=== PATIENT | male | born 1965 | race Caucasian/White ===

== ENCOUNTER 2018-01-14 07:42 | Emergency (ER) | payer OTHER ==
[~2018-01-14] VITALS: Ht 190.5 cm; Wt 117.9 kg
[~2018-01-14 07:42] MED LIST: ALBUTEROL0.09 MG/A1 INH; ATORVASTATIN CA10 M1 PO; BIAXIN FILMTAB500 MG PO; BROMFED DM COU118 ML PO; DILAUDID2 MG PO; FLEXERIL10 MG PO; GLYBURIDE2.5 MG PO; GLYBURIDE5 M1 PO; GLYBURIDE5 MG PO; LOSARTAN-HCTZ1 EAC2 PO; METFORMIN HCL500 M3 PO; NAPROSYN 500 M500 MG PO; NAPROXEN500 MG PO; PERCOCET 325 MG1 TA2 PO; PERCOCET 7.5-31 EACH PO; PROAIR HFA0.09 MG/Ac INH; ROBITUSSIN W/CO10 ML PO; TAMSULOSIN HYD0.4 MG PO
[2018-01-14 07:46] VITALS: BP 154/81
[2018-01-14] MEDS ORDERED: PROAIR HFA8.5 GM INH (07:57)
[2018-01-14] MEDS ORDERED: FLONASE ALLERG9.9 ML NAS (07:57)
[2018-01-14] MEDS ORDERED: ZITHROMAX250 M2 PO (07:57)
[2018-01-14] MEDS ORDERED: TESSALON PERLE100 M1 PO (07:57)
--- NOTE | 2018-01-14 07:58 | ED INFLUENZA/URI COMPLAINT ---
History of Present Illness General Chief Complaint: Upper Respiratory Sx/Fever Stated Complaint: URI Source: patient, old records Exam Limitations: no limitations Vital Signs & Intake/Output Vital Signs & Intake/Output Vital Signs Date Time Temp Pulse Resp B/P B/P Pulse O2 O2 Flow FiO2 Mean Ox Delivery Rate 01/14 0801 Room Air Room Air 01/14 0746 98.2 79 18 154/81 96 Room Air Allergies Coded Allergies: NO KNOWN ALLERGIES (NONE) (05/18/15) Reconcile Medications Albuterol Sulfate (Proair Hfa) 90 MCG HFA.AER.AD 2 PUF INH Q4-6 PRN PRN BRONCHITIS Azithromycin (Zithromax) 250 MG TABLET 1 DP PO AD SINUSITIS 2 the first day followed by 1 for days 2-5 Benzonatate (Tessalon Perle) 100 MG CAPSULE 1 CAP PO TID PRN COUGH Fluticasone Propionate (Flonase Allergy Relief) 50 MCG/ACTUATION SPRAY.SUSP 2 SPRAY CIRA DAILY SINUSITIS Triage Note: PT TO ER C/C 3 WEEK HX OF POST-NASAL DRIP, WORSE AT NIGHT INDUCING COUGH. PT HAS NOT TRIED ANY OTC MEDICATIONS FOR S/S. DENIES FEVERS OR CHILLS. Triage Nurses Notes Reviewed? yes HPI: Patient presents with a three-week history of postnasal drip causing a productive cough. Patient is a smoker. Patient states the symptoms are worse at night. Patient has been trying [id number] medication without relief. He states that now he is blowing his nose and green stuff is coming out. Patient has not seen his primary care physician for this. There is no headache. There is no blurry vision. There is no nausea or vomiting. Past History Travel History Traveled to [place] past 21 day No Medical History Any Pertinent Medical History? 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 No Review of Systems Review of Systems Constitutional: Reports: no symptoms. EENTM: Reports: see HPI, nasal congestion. Respiratory: Reports: see HPI, cough. Cardiovascular: Reports: no symptoms. GI: Reports: no symptoms. Musculoskeletal: Reports: no symptoms. Neurological/Psychological: Reports: no symptoms. Immunologic/Allergic: Reports: no symptoms. Physical Exam Physical Exam General Appearance: well developed/nourished, alert, awake, anxious Eyes: Bilateral: PERRL, EOMI. Ears, Nose, Throat: Tympanic normal, pharynx normal, nasal congestion, nasal drainage Respiratory: chest non-tender, wheezing Cardiovascular: regular rate/rhythm, normal peripheral pulses Neurologic/Psych: no motor/sensory deficits, awake, alert, oriented x 3, normal gait, normal mood/affect Core Measures Sepsis Present: No Sepsis Focused Exam Completed? No Progress Differential Diagnosis: pneumonia, sinusitis Plan of Care: ABX Initial ED EKG: none Departure Departure Disposition: HOME OR SELF CARE Condition: Stable Clinical Impression Primary Impression: Sinusitis Referrals: Mick AGUILERA,Tamara (PCP/Family) Additional Instructions: YOU REALLY NEED TOSTOP SMOKING, FOLLOW UP WITH YOUR DOCTOR FOR DIFFERENT WAYS TO HELP YOU STOP SMOKING TAKE ANTIBIOTICS PRESCRIBED TAKE TESSALONAS NEEDED FORCOUGH USE NASAL SPRAY DIRECTED USE INHALER NEEDED RETURN IF SYMNPTOMS WORSEN OR FOR ANY CONCERNS Departure Forms: Customer Survey General Discharge Information Prescriptions: Current Visit Scripts Albuterol Sulfate (Proair Hfa) 2 PUF INH Q4-6 PRN PRN BRONCHITIS #1 INHAL Benzonatate (Tessalon Perle) 1 CAP PO TID PRN COUGH #30 CAP Azithromycin (Zithromax) 1 DP PO AD #6 TAB 2 the first day followed by 1 for days 2-5 Fluticasone Propionate (Flonase Allergy Relief) 2 SPRAY CIRA DAILY #1 UNIT
== END 2018-01-14 08:04 ==
LOC: ERH 07:42
DX: J32.9 Chronic sinusitis, unspecified (principal); F17.210 Nicotine dependence, cigarettes, uncomplicated

== ENCOUNTER 2018-02-16 02:24 | Emergency (ER) | payer OTHER ==
[~2018-02-16 02:24] MED LIST changes: +AMOXICILLIN500 M3 PO; +FLONASE ALLERG9.9 ML NAS; +IBUPROFEN600 M1 PO; +PREDNISONE20 M1 PO; +PROAIR HFA8.5 GM INH; +TESSALON PERLE100 M1 PO; +ZITHROMAX250 M2 PO
--- NOTE | 2018-02-16 02:31 | ED DYSPNEA/ASTHMA COMPLAINT ---
History of Present Illness General Chief Complaint: General Adult Stated Complaint: "COUGHING UP PHLEGM, HEADACHE" Source: patient Exam Limitations: no limitations Vital Signs & Intake/Output Vital Signs & Intake/Output Vital Signs Date Time Temp Pulse Resp B/P B/P Pulse O2 O2 Flow FiO2 Mean Ox Delivery Rate 02/16 0242 97 02/16 0233 Room Air Allergies Coded Allergies: No Known Allergies (02/16/18) Reconcile Medications Albuterol Sulfate (Ventolin Hfa) 90 MCG HFA.AER.AD 2 PUF INH Q4-6 PRN PRN COUGH Albuterol Sulfate (Proair Hfa) 90 MCG HFA.AER.AD 2 PUF INH Q4-6 PRN PRN BRONCHITIS Amoxicillin 500 MG TABLET 1 TAB PO TID sinusitis Azithromycin (Zithromax) 250 MG TABLET 1 DP PO AD SINUSITIS 2 the first day followed by 1 for days 2-5 Benzonatate (Tessalon Perle) 100 MG CAPSULE 1-2 CAP PO TID PRN COUGH Benzonatate (Tessalon Perle) 100 MG CAPSULE 1 CAP PO TID PRN COUGH Fluticasone Propionate (Flonase Allergy Relief) 50 MCG/ACTUATION SPRAY.SUSP 2 SPRAY CIRA DAILY SINUSITIS Ibuprofen 600 MG TABLET 1 TAB PO Q6P PRN pain with food Prednisone 20 MG TABLET 1 TAB PO BID sinusitis Triage Nurses Notes Reviewed? yes Onset: Gradual Duration: day(s): Timing: recent history Severity: moderate Activities at Onset: none Prior Episodes/Possible Cause: occasional episodes Modifying Factors: Worsens With: other (WORSE W/COUGH). Associated Symptoms: cough, wheezing HPI: 52 YO GENTLEMAN, h/o cigarette smoking, presents with cough, wheezing, phlegm. He was seen 3 days ago, started on amox and prednisone 20mg bid. He notes that he continues to cough up phlegm and wheeze. No fever, chills, chest pain, dizziness. He is otherwise well. Past History Travel History Traveled to [place] past 21 day No Medical History Any Pertinent Medical History? 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 No Review of Systems Review of Systems Constitutional: Denies: see HPI. Physical Exam Physical Exam Respiratory: wheezing Comments: Review of Systems - except as otherwise noted in HPI Review of Systems Constitutional:no symptoms. EENTM:no symptoms. Respiratory:no symptoms. Cardiovascular:no symptoms. GI:no symptoms. Genitourinary:no symptoms. Musculoskeletal:no symptoms. Skin:no symptoms. Neurological/Psychological:no symptoms. Hematologic/Endocrine:no symptoms. Immunologic/Allergic:no symptoms. All Other Systems: Reviewed and Negative Physical Exam Physical Exam General Appearance: well developed/nourished, no apparent distress Head: atraumatic, normal appearance Eyes: Bilateral: normal appearance. Ears, Nose, Throat: normal pharynx, normal ENT inspection Neck: normal inspection, supple, full range of motion Respiratory: wheezing bilaterally, no respiratory distress Cardiovascular: regular rate/rhythm Gastrointestinal: normal bowel sounds, soft, non-tender, no organomegaly Back: normal inspection, normal range of motion Extremities: normal inspection, normal capillary refill, normal range of motion, no edema Neurologic/Psych: no motor/sensory deficits, awake, alert, oriented x 3 Skin: intact, normal color, warm/dry Core Measures ACS in differential dx? No CVA/TIA Diagnosis No Sepsis Present: No Sepsis Focused Exam Completed? No Progress Differential Diagnosis: asthma, bronchitis Plan of Care: pt still with symptoms of bronchitis w/ bothersome cough.... gave duoneb, decadron 8mg... added tessalon perles and albuterol to regimen... pt otherwise stable... close follow up advised. Initial ED EKG: none Departure Departure Disposition: HOME OR SELF CARE Condition: Stable Clinical Impression Primary Impression: Bronchitis Referrals: Mick AGUILERA,Tamara (PCP/Family) Departure Forms: Customer Survey General Discharge Information Prescriptions: Current Visit Scripts Albuterol Sulfate (Ventolin Hfa) 2 PUF INH Q4-6 PRN PRN COUGH #1 INHAL Ref 1 Benzonatate (Tessalon Perle) 1-2 CAP PO TID PRN COUGH #30 CAP Critical Care Note Critical Care Note Critical Care Time: non-applicable
[2018-02-16] MEDS ORDERED: VENTOLIN HFA18 GM INH (02:33)
[2018-02-16] MEDS ORDERED: TESSALON PERLE100 M1 PO (02:33)
[2018-02-16 02:40] VITALS: BP 138/82
== END 2018-02-16 03:08 ==
LOC: ERH 02:24
DX: J40 Bronchitis, not specified as acute or chronic (principal); Z87.891 Personal history of nicotine dependence
CPT/HCPCS: 1263; 1395